=== PATIENT | female | born 1955 | race Caucasian/White ===

== ENCOUNTER 2020-06-27 13:10 | Emergency (ER) | payer OTHER, SELFPAY ==
--- NOTE | ~2020-06-27 | XR_ITS ---
CORRECTED REPORT EXAMINATION CORRECTED. CHANGED TO XR foot RT min 3V. EXAMINATION: XR foot LT min 3V 06/27/2020 [facility] [place] DATE: 06/27/2020 13:38 INDICATION: Right foot pain, initial encounter TECHNIQUE: Dorsoplantar, lateral, and 2 oblique views of the right foot were obtained. COMPARISON: None. FINDINGS: There is an acute, traumatic, closed, oblique, intra-articular fracture at the lateral base of the fifth metatarsal with adjacent soft tissue swelling. A thin linear heterotopic ossification projects dorsal to the navicular on the lateral view which likely relates to an os naviculare a noted on other views. 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 Mild osteoarthritis is noted in several interphalangeal joints. IMPRESSION: 1. Oblique intra-articular fracture at the lateral base of the fifth metatarsal. Reviewed, dictated and finalized at location A. MTDD IMPRESSION: 1. Oblique intra-articular fracture at the lateral base of the fifth metatarsal .
[2020-06-27 13:30] VITALS: BP 138/94; PULSE 77; RESP 17; TEMP 36.9; O2SAT 98
--- NOTE | 2020-06-27 13:58 | ED.LOWEXIN ---
HPI - Extremity Injury (Lower) General Chief Complaint: Extremity Injury, Lower Stated Complaint: right ankle injury Time Seen by Provider: 06/27/20 13:50 Source: patient and RN notes reviewed Mode of arrival: ambulatory Limitations: no limitations History of Present Illness HPI Narrative: Patient presents today complaining of right ankle and foot injury. She was running today and twisted her ankle on a gumball from a gumball tree. Denies numbness or tingling in the leg or foot. Currently rates her pain 10. She has tried no [id number] interventions prior to arrival. MD complaint: ankle injury and foot injury Related Data Home Medications Medication Instructions Recorded Confirmed No Home Medications 06/27/20 06/27/20 Allergies Allergy/AdvReac Type Severity Reaction Status Date / Time No Known Allergies Allergy Verified 06/27/20 13:33 Review of Systems Review of Systems: Narrative: CONSTITUTIONAL: Denies body aches, fever, chills, or sweats. EYES: Denies visual changes, redness, or discharge. ENT: Denies rhinorrhea, congestion, sore throat, or otalgia. CARDIOVASCULAR: Denies chest pain, palpitations, or edema. RESPIRATORY: Denies cough or dyspnea. GASTROINTESTINAL: Denies abdominal pain, nausea, vomiting, or diarrhea. GENITOURINARY: Denies dysuria or hematuria. SKIN: Denies rash, itching, or wounds. MUSCULOSKELETAL: Denies back pain, or myalgia.+ Right foot and ankle injury NEUROLOGIC: Denies headache, numbness, tingling, or weakness. PSYCH: Denies depression or anxiety. PMFSH Social History Social History Gender identity (if verbalized by the patient): Female Comments At time of signature, I have reviewed and agree with nursing past medical, surgical, social and family history unless otherwise noted. Please see nursing chart for further information. There is no relevant family history pertinent to the presenting complaint Exam Narrative: Exam Narrative: GENERAL: Well-appearing, well-nourished, and in no acute distress. Ambulates with cane. HEAD: Normocephalic, atraumatic. EYES: EOMI. No redness or drainage. ENT: Mucous membranes pink and moist. NECK: Normal AROM. CHEST: No respiratory distress. EXTREMITIES: Right ankle/foot: Moderate edema and ecchymosis to the lateral malleolus extending to the lateral foot. Tenderness to same area. No tenderness to the medial foot or medial malleolus. No tenderness to the toes. Distal sensation intact. Capillary refill normal. Pedal pulse normal. Full range of motion of toes. Somewhat limited range of motion of the ankle due to pain and swelling. SKIN: Warm, dry, no rash. Capillary refill normal. Normal skin turgor. NEURO: No focal deficits. Alert and oriented x3. PSYCH: Normal affect. No signs of depression or anxiety. Course Vital Signs Vital signs: Vital Signs Temperature 98.5 F 06/27/20 13:30 Pulse Rate 77 06/27/20 13:30 Respiratory Rate 17 06/27/20 13:30 Blood Pressure 138/94 H 06/27/20 13:30 Pulse Oximetry 98 06/27/20 13:30 Temperature 98.5 F 06/27/20 13:30 Pulse Rate 77 06/27/20 13:30 Respiratory Rate 17 06/27/20 13:30 Blood Pressure 138/94 H 06/27/20 13:30 Pulse Oximetry 98 06/27/20 13:30 Reviewed. Pt has been instructed to follow up with her PCP regarding her elevated blood pressure today. MDM - Extremity Injury (Lower) Differential Diagnosis Differential diagnosis: Likely ankle sprain and strain, ankle fracture and other (Foot sprain, foot fracture, contusion) Imaging Data Radiologist's impression: ITS Impressions Foot X-Ray 06/27/20 13:39 IMPRESSION: 1. Oblique intra-articular fracture at the lateral base of the fifth metatarsal. Critical Care Time Critical Care Time Critical Care Time: No Discharge Plan Discharge Clinical Impression: Ankle sprain and strain Metatarsal fracture Qualifiers: Encounter type: initial encounter Metatarsal bone: fifth Fractu
== END 2020-06-27 14:08 | disposition home or self-care (01) ==
PROVIDERS: Emergency Provider Nurse Practitioner
DX: S93.401A Sprain of unspecified ligament of right ankle, initial encounter (principal); S96.911A Strain of unspecified muscle and tendon at ankle and foot level, right foot, initial encounter; X50.9XXA Other and unspecified overexertion or strenuous movements or postures, initial encounter; S92.354A Nondisplaced fracture of fifth metatarsal bone, right foot, initial encounter for closed fracture
CPT/HCPCS: 73630; 99214; G0463